=== PATIENT | female | born 1960 | race Caucasian/White ===

== ENCOUNTER 2016-12-29 13:31 | Emergency (ER) | payer SELFPAY ==
[~2016-12-29 13:31] MED LIST: AMITRIPTYLINE H25 MG PO; IMITREX25 MG PO; LEXAPRO10 MG PO; MELATONIN5 M1 PO
[2016-12-29] MEDS ORDERED: IMITREX100 M2 PO (13:43)
[2016-12-29] MEDS ORDERED: IMITREX6 MG/0.52 SC (13:44)
== END 2016-12-29 15:40 ==
LOC: EDMED 13:31
DX: G43.909 Migraine, unspecified, not intractable, without status migrainosus (principal)
CPT/HCPCS: J1200; J1885; J2765